=== PATIENT | male | born 1995 | race Caucasian/White ===

== ENCOUNTER 2018-03-20 15:07 | Emergency (ER) | payer OTHER ==
[2018-03-20 15:26] VITALS: BP 130/70; PULSE 80; TEMP 99.1
--- NOTE | 2018-03-20 15:26 | PDOC ---
Rapid Medical Evaluation Time Seen by Provider: 03/20/18 15:20 Medical Evaluation: Allergies Allergy/AdvReac Type Severity Reaction Status Date / Time No Known Allergies Allergy Verified 03/20/18 15:22 03/20/18 15:24 I have performed a brief in-person evaluation of this patient. The patient presents with a chief complaint of: neck and lower back pain s/p heavy lifting at work today Pertinent physical exam findings:stephanie uncomfortable w/ ttp to mid lower neck and mid lower back I have ordered the following:xrays The patient will proceed to the ED for further evaluation. Discharge Disposition - Diagnosis Back injury Qualifiers: Encounter type: initial encounter Qualified Code(s): S39.92XA - Unspecified injury of lower back, initial encounter - Referrals - Patient Instructions - Post Discharge Activity
--- NOTE | 2018-03-20 15:39 | PDOC ---
History of Present Illness - General Chief Complaint: Back Pain Stated Complaint: SEVERE BACK PAIN Time Seen by Provider: 03/20/18 15:20 History Source: Patient Exam Limitations: No Limitations - History of Present Illness Initial Comments: 03/20/18 16:07 Patient is a 22-year-old male with no past medical history who presents to the emergency department today for low back pain. 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 He states that the left side hurts and radiates down the left leg. Denies numbness and tingling to the extremity, weakness, bladder and bowel incontinence, saddle anesthesia. Past History - Travel Traveled outside of the country in the last 30 days: No Close contact w/someone who was outside of country & ill: No - Past Medical History Allergies/Adverse Reactions: Allergies Allergy/AdvReac Type Severity Reaction Status Date / Time No Known Allergies Allergy Verified 03/20/18 15:22 Home Medications: Ambulatory Orders Cyclobenzaprine HCl [Flexeril -] 10 mg PO HS #10 tablet 03/20/18 Ibuprofen 800 mg PO TID #30 tablet 03/20/18 COPD: No - Suicide/Smoking/Psychosocial Hx Smoking History: Current every day smoker Number of Cigarettes Smoked Daily: 1 Information on smoking cessation initiated: No Hx Alcohol Use: No Drug/Substance Use Hx: No Review of Systems - Review of Systems Able to Perform ROS?: Yes Comments:: 03/20/18 17:48 CONSTITUTIONAL: Absent: fever, chills, diaphoresis, generalized weakness, malaise, loss of appetite HEENT: Absent: rhinorrhea, nasal congestion, throat pain, throat swelling, difficulty swallowing, mouth swelling, ear pain, eye pain, visual Changes CARDIOVASCULAR: Absent: chest pain, loss of consciousness, palpitations, irregular heart rate, peripheral edema RESPIRATORY: Absent: cough, shortness of breath, dyspnea with exertion, orthopnea, wheezing, stridor, hemoptysis GASTROINTESTINAL: Absent: abdominal pain, abdominal distension, nausea, vomiting, diarrhea, constipation, melena, hematochezia GENITOURINARY: Absent: dysuria, frequency, urgency, hesitancy, hematuria, flank pain, genital pain MUSCULOSKELETAL: Present: left lower back pain Absent: arthralgia, joint swelling SKIN: Absent: rash, itching, pallor HEMATOLOGIC/IMMUNOLOGIC: Absent: easy bleeding, easy bruising, lymphadenopathy, frequent infections ENDOCRINE: Absent: unexplained weight gain, unexplained weight loss, heat intolerance, cold intolerance NEUROLOGIC: Absent: headache, focal weakness or paresthesias, dizziness, unsteady gait, seizure, mental status changes, bladder or bowel incontinence PSYCHIATRIC: Absent: anxiety, depression, suicidal or homicidal ideation, hallucinations. Is the patient limited Moroccan proficient: No *Physical Exam - Vital Signs Last Vital Signs Temp Pulse Resp BP Pulse Ox 99.1 F 80 16 130/70 99 03/20/18 15:23 03/20/18 15:23 03/20/18 15:23 03/20/18 15:23 03/20/18 15:23 - Physical Exam Comments: 03/20/18 16:07 GENERAL: Well developed, well nourished. Awake and alert. No acute distress. HEENT: Normocephalic, atraumatic. PERRLA, EOMI. No conjunctival pallor. Sclera are non- icteric. Moist mucous membranes. Oropharynx is clear. NECK: Supple. Full ROM. No JVD. Carotid pulses 2+ and symmetric, without bruits. No thyromegaly. No lymphadenopathy. CARDIOVASCULAR: Regular rate and rhythm. No murmurs, rubs, or gallops. Distal pulses are 2+ and symmetric. PULMONARY: No evidence of respiratory distress. Lungs clear to auscultation bilaterally. No wheezing, rales or rhonchi. ABDOMINAL: Soft. Non-tender. Non-distended. No rebound or guarding. No organomegaly. Normoactive bowel sounds. MUSCULOSKELETAL TTP of the L lower paraspinous muscles at the level of L3-5 with midline tenderness. (-) Straight leg raise on the L. Normal range of motion at all joints. No CVA tenderness. EXTREMITIES: No cyanosis. No clubbing. No edema. No calf tenderness. SKIN: Warm and dry. Normal capillary refill. No rashes. No jaundice. NEUROLOGICAL: Alert, awake, appropriate. Cranial nerves 2-12 intact. No deficits to light touch and temperature in face, upper extremities and lower extremities. No motor deficits in the in face, upper extremities and lower extremities. Normoreflexic in the upper and lower extremities. Normal speech. Toes are down- going bilaterally. Gait is normal without ataxia. PSYCHIATRIC: Cooperative. Good eye contact. Appropriate mood and affect. Medical Decision Making - Medical Decision Making 03/20/18 17:08 Patient is a 22-year-old male with no past medical history who presents to the emergency department today for low back pain. 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 -Pt with TTP of the L paraspinous muscles, L3-L5, with palpable knot consistent with muscle spasm. -Pt also with midline tenderness: x-rays of the low back obtained and were negative for fracture or diminished disc space on wet read. -No trauma, or fever. No saddle anesthesia or bladder/bowel incontinence. No CVA tenderness. -Pt is neurologically intact on exam with no focal findings. -Toradol and flexeril given with relief of symptoms -DC home. Ortho follow up given for if symptoms do not resolve. -I discussed the physical exam findings, ancillary test results and final diagnoses with the patient. I answered all of the patient's questions. The patient was satisfied with the care received and felt comfortable with the discharge plan and treatment plan. The Patient agrees to follow up with the primary care physician/specialist within 24-72 hours. Return precautions were given. *DC/Admit/Observation/Transfer Diagnosis at time of Disposition: Back injury Qualifiers: Encounter type: initial encounter Qualified Code(s): S39.92XA - Unspecified injury of lower back, initial encounter - Discharge Dispostion Disposition: HOME Condition at time of disposition: Stable Decision to Admit order: No - Referrals Referrals: Geovany Tilley MD [Staff Physician] - - Patient Instructions Printed Discharge Instructions: DI for Low Back Pain Additional Instructions: You have low back pain due to a muscle spasm. Please take ibuprofen 800 mg 3 times a day not to exceed 3000 mg a day. You were also prescribed Flexeril. Please take this medication every 8 hours for the first day. Then take the medication before you go to bed. Do not drive after taking this medication as it may make you sleepy. You may use warm compresses on your back to help with her symptoms. Please follow-up with your primary care doctor. If your symptoms do not resolve in 3-5 days, follow-up with orthopedics. A referral has been provided for you. Return to the emergency department if you have worsening back pain, bladder or bowel incontinence, numbness and tingling in her legs, changes in the way you walk, or any new or worsening symptoms. - Post Discharge Activity Forms/Work/School Notes: Back to Work
[2018-03-20] MEDS ORDERED: CYCLOBENZAPRINE HCL 10 MG TABLET (FP) PO ONE (15:40)
[2018-03-20] MEDS ORDERED: KETOROLAC TROMETHAMINE 60 MG/2 ML VIAL IM ONE (15:40)
[2018-03-20] MEDS ORDERED: KETOROLAC TROMETHAMINE 60 MG/2 ML VIAL ONE (15:41)
[2018-03-20] MEDS ORDERED: CYCLOBENZAPRINE HCL 10 MG TABLET (FP) ONE (15:42)
[2018-03-20 16:26] VITALS: BMI 22.6
== END 2018-03-20 18:28 | disposition home or self-care (01) ==
LOC: JERFT 15:07
PROC: 3E0233Z Introduction of Anti-inflammatory into Muscle, Percutaneous Approach (ICD-10-PCS; principal; 2018-03-20)
DX: S39.92XA Unspecified injury of lower back, initial encounter (principal); X58.XXXA Exposure to other specified factors, initial encounter; Y93.89 Activity, other specified; Y92.9 Unspecified place or not applicable; Y99.0 Civilian activity done for income or pay
CPT/HCPCS: 72050-TC-FY; 72100-TC-FY; 99281-25

== ENCOUNTER 2018-12-02 09:02 | Emergency (ER) | payer SELFPAY | END 2018-12-02 13:00 | disposition home or self-care (01) | LOC: JER 09:02 ==